=== PATIENT | female | born 1960 | race Asian ===

== ENCOUNTER 2018-01-18 14:48 | Inpatient (IN) | END 2018-01-29 20:00 | disposition home health service (06) | DRG 982 ==

== ENCOUNTER 2018-05-11 13:49 | Day surgery (SDC) | payer OTHER ==
[~2018-05-11] VITALS: Ht 154.9 cm; Wt 57.6 kg
[~2018-05-11 13:49] MED LIST: ASPI-535 PO; CEFAZOLIN 1 GM INJ ONE; CEFAZOLIN 2 GM/50 ML (PMX) 50 ML IVPB ONE; CHOL378P PO; DAPA10TA PO; EZET10TA32 PO; INSU300I SQ; LINA5TAB PO; METF100010 PO; NOVO3I SC; PIOG30TA12 PO; VANC1PLA15 IV
[2018-05-11 15:17] VITALS: Ht 154.9 cm; Wt 57.6 kg
[2018-05-11 15:18] VITALS: BP 137/65; PULSE 75; RESP 16
[2018-05-11] MEDS ORDERED: SOD CHLORIDE 0.9% 1,000 ML IV SCH (15:30)
[2018-05-11] MEDS ORDERED: POLYMYXIN/BACITRACIN 1L IRRIG ONE (15:41)
[2018-05-11] MEDS ORDERED: BUPIVACAINE 0.5% (SDV) 30 ML INJ ONE (15:41)
[2018-05-11] MEDS ORDERED: LIDOCAINE 1% (MPF) 30 ML INJ ONE (15:41)
--- NOTE | 2018-05-11 16:04 | HPN ---
Date/Time of Note Date/Time of Note DATE: 05/11/18 TIME: 16:04 Interval H&P Admission Note Pt. seen H&P reviewed: No system changes ALLISON QUEEN DPM May 11, 2018 16:04
--- NOTE | 2018-05-11 16:08 | PREAC ---
Date/Time of Note Date/Time of Note DATE: 05/11/18 TIME: 16:06 Anesthesia Eval and Record Evaluation Time Pre-Procedure Interview DATE: 05/11/18 TIME: 16:06 Age 58 Sex female NPO: 8 hrs Preoperative diagnosis right ankle wound Planned procedure RIGHT ANKLE DEBRIDEMENT AND WOUND Past Medical History Past Medical History: Includes Endo: Diabetes Surgery & Anesthesia Issues No known issue Meds Anticoagulation: No Beta Tristin within 24 hr: No Reason Beta Tristin not given: Pt. not on B-Tristin Active Scripts Pioglitazone Hcl* (Actos*) 30 Mg Tablet, 30 MG PO DAILY for 30 Days, #30 TAB 5 Refills Prov:CASSANDRA THACKER MD 01/28/18 Linagliptin (TRADJENTA) 5 Mg Tablet, 5 MG PO DAILY for 30 Days, #30 TAB 5 Refills Prov:CASSANDRA THACKER MD 01/28/18 Insulin Aspart* (Novolog Insulin Pen*) 100 Unit/Ml Soln, 4 UNIT SC WITH MEALS for 30 Days, #2 SYR 5 Refills Prov:CASSANDRA THACKER MD 01/28/18 Ezetimibe (Ezetimibe) 10 Mg Tablet, 10 MG PO DAILY for 30 Days, #30 TAB 5 Refill s Prov:CASSANDRA THACKER MD 01/28/18 Insulin Glargine,Hum.rec.anlog (Toujeo Solostar) 300 Unit/1 Ml Insuln.pen, 15 UNIT SQ QHS for 30 Days, #2 SYR 5 Refills Prov:CASSANDRA THACKER MD 01/28/18 Reported Medications Cholestyramine* (Cholestyramine* Powder) 378 Gm Powder, 4 GM PO TID, EA 01/18/18 Metformin Hcl* (Metformin Hcl*) 1,000 Mg Tablet, 1000 MG PO PC BREAKFAST DINNER, #30 TAB 01/18/18 Aspirin Ec (Aspir 81) 81 Mg Tablet.dr, 81 MG PO DAILY, #30 TAB 01/18/18 Dapagliflozin Propanediol (Farxiga) 10 Mg Tablet, 10 MG PO DAILY, #30 TAB 01/18/18 Discontinued Scripts Vancomycin/0.9 % Sod Chloride (Vanco 1 Gram/150 ml-0.9% NaCl) 1 Gm/150 Ml Plast..bag, 1 GM IV Q12 for 28 Days, #56 EA 0 Refills Prov:CASSANDRA THACKER MD 01/28/18 Current Medications Sodium Chloride 1,000 ml @ 30 mls/hr Q24H IV ; Start 05/11/18 at 15:30 Meds reviewed: Yes Allergies Coded Allergies: No Known Allergy (Unverified , 05/11/18) Allergies Reviewed: Yes Labs/Studies Labs Reviewed: Reviewed by anesthesiologist test: N/A Studies: ECG (SR) Pre-procedure Exam Last vitals Vital Signs Date Temp Pulse Resp B/P (MAP) Pulse Ox O2 O2 Flow FiO2 Time Delivery Rate 05/11/18 97.7 75 16 137/65 99 Room Air 15:18 (89) Airway: Adequate thyromental dist Mallampati: Mallampati II Teeth: Abnormal (missing front top and bottom tooth / denture) Lung: Normal Heart: Normal ASA Physical Status ASA physical status: 2 Emergency: None Planned Anesthetic General/MAC: MAC Pre-operative Attestations Prior to commencing anesthesia and surgery, the patient was re-evaluated, there was verification of: *The patient's identity *The results of appropriate recent lab work and preoperative vital signs *The above evaluation not changing prior to induction *Anesthetic plan, risk benefits, alternative and complications discussed with patient/family; questions answered; patient/family understands, accepts and wishes to proceed. NATHALY PETER May 11, 2018 16:08
[2018-05-11] MEDS ORDERED: FENTAnyl 50 MCG/ML VIAL ONE (16:10)
[2018-05-11] MEDS ORDERED: PROPOFOL 100 ML ONE (16:10)
[2018-05-11] MEDS ORDERED: MIDAZOLAM 1 MG/ML 2 ML INJ ONE (16:10)
--- NOTE | 2018-05-11 17:11 | PAC ---
Date/Time of Note Date/Time of Note DATE: 05/11/18 TIME: 17:11 Post-Anesthesia Notes Post-Anesthesia Note Last documented vital signs Vital Signs Date Temp Pulse Resp B/P (MAP) Pulse Ox O2 O2 Flow FiO2 Time Delivery Rate 05/11/18 97.7 75 16 137/65 99 Room Air 15:18 (89) Activity: WNL Respiratory function: WNL Cardiovascular function: WNL Mental status: Baseline Pain reasonably controlled: Yes Hydration appropriate: Yes Nausea/Vomiting absent: Yes NATHALY PETER May 11, 2018 17:11
--- NOTE | 2018-05-11 17:15 | SIPON ---
Date/Time of Note Date/Time of Note DATE: 05/11/18 TIME: 17:08 Operative Report Preoperative Diagnosis Right ankle diabetic ulceration Diabetes with PN Diabetes with hyperglycemia Postoperative Diagnosis same Operation/Procedure Performed Right ankle excision of ulceration right ankle Right ankle local advanced flap closure Right foot application short leg cast Surgeon see signature line access services assistant Dr. Velazco Anesthesia: MAC Estimated blood loss: 0 - 10 ml's Transfusion Required none Specimen wound culture right ankle Grafts/Implants none Complications none LUCA BATES DPM May 11, 2018 17:15
[2018-05-11] MEDS ORDERED: LABETALOL HCL 20MG INJ IV PRN (17:30)
[2018-05-11] MEDS ORDERED: FENTAnyl 50 MCG/ML VIAL IV PRN ×2 (17:30)
[2018-05-11] MEDS ORDERED: METOCLOPRAMIDE 10 MG INJ IV PRN (17:30)
[2018-05-11] MEDS ORDERED: hydrALAzine 20 MG INJ IV PRN (17:30)
[2018-05-11] MEDS ORDERED: ONDANSETRON 4 MG INJ IV PRN (17:30)
[2018-05-11] MEDS ORDERED: HYDROmorphONE 1 MG/5 ML IV SYRINGE IV PRN ×2 (17:30)
[2018-05-11 17:49] VITALS: BP 117/63; PULSE 83; RESP 14
--- NOTE | 2018-05-12 20:20 | OPR ---
DATE OF OPERATION: 05/11/2018 DATE OF SURGERY: 05/11/2018 PREOPERATIVE DIAGNOSES: 1. Right ankle diabetic ulceration, nonhealing. 2. Diabetes with peripheral neuropathy. 3. Diabetes with hyperglycemia. POSTOPERATIVE DIAGNOSES: 1. Right ankle diabetic ulceration, nonhealing. 2. Diabetes with peripheral neuropathy. 3. Diabetes with hyperglycemia. PROCEDURES PERFORMED: 1. Right ankle excision of ulceration, right ankle. 2. Right ankle local advancement skin flap closure. 3. Right foot short leg cast application. PATHOLOGY: Wound cultures. ANESTHESIA: MAC with local. ESTIMATED BLOOD LOSS: 10 mL. GRAFTS: None. COMPLICATIONS: None. INDICATION FOR PROCEDURE: A 58-year-old diabetic [place] female with nonhealing ulceration over the right posterior ankle over the Achilles tendon, has attempts with wound care with inadequate granula tion tissue formation. The patient presents for operative intervention. The patient has been unable to work given ulceration and discussed planned procedure, risks, benefits, potential complications. Informed consent was obtained. PROCEDURE IN DETAIL: The patient was brought into the operating room and placed in the supine positi on. Formal timeout was performed. Extremity was marked prepped with Betadine scrub and paint, drape d in usual sterile fashion. At this time, the ulcer was located. The posterior lateral right ankle which was excised with a pickup #15 blade. Ulceration measured approximately 1 x 1 cm paratenon of t endon exposed. At this time, the tissue was pinched and vertical incision was made anterolaterally a nd adjacent tissue was mobilized to a local flap which measured dimensions 3.5 x1.5 cm. Tissue was advanced and rotated into the defect, which was then closed with a 4-0 nylon. The donor site closed primarily. The patient had minimal blood loss less than 10 mL. The wound cultures have been obtaine d. The patient tolerated the procedure well. The surgical incision was covered with Xeroform, 4 x 4 gauze, Kerlix and placed in a plantar flex short leg cast. The patient tolerated the procedure well and was transferred to PACU with vital signs stable. POSTOPERATIVE PLAN: Will remain nonweightbearing. Follow up in 1 to 2 weeks. Recommend tight glyce fabrizio control. Dictated By: LUCA ODELL/ESTELLA Conf#: [id number] DID#: [id number] CC: LUCA BATES DPM;*EndCC*
== END 2018-05-11 18:57 | disposition home or self-care (01) ==
LOC: SDS 13:49
PROVIDERS: ATTEND Podiatrist Foot & Ankle Surgery
DX: E11.42 Type 2 diabetes mellitus with diabetic polyneuropathy (principal); E11.622 Type 2 diabetes mellitus with other skin ulcer; E11.65 Type 2 diabetes mellitus with hyperglycemia; Z79.4 Long term (current) use of insulin; Z79.84 Long term (current) use of oral hypoglycemic drugs
CPT/HCPCS: 14020; 82962; 87070; 87075; 87102; 88304; J0690; J2250; J3010